=== PATIENT | female | born 1980 | race Two or more races ===

== ENCOUNTER → 2020-01-21 | Emergency (ER) | payer MEDICAID ==
[~2020-01-21] VITALS: Ht 165.1 cm; Wt 63.5 kg
[2020-01-21 19:56] LABS: Basophils # (auto) 0.1 10 ^3/uL (0-0.2); Eosinophils # (auto) 0.1 10 ^3/uL (0-0.8); Mean Corpuscular Volume 68.2 fL (80.0-100.0); Monocytes # (auto) 0.4 10 ^3/uL (0-1.3)
[2020-01-21 19:57] LABS: Basophils % (auto) 1.9 % (0.0-2.0); Eosinophils % (auto) 1.4 % (0.0-7.0); Hematocrit 32.5 % (36.0-46.0); Hemoglobin 10.2 g/dL (12.2-16.2); Lymphocytes # (auto) 1.8 10 ^3/uL (0.4-5.4); Lymphocytes % (auto) 27.8 % (10.0-50.0); Mean Corpuscular Hemoglobin 21.5 pg (28.0-32.0); Mean Corpuscular Hgb Conc. 31.5 g/dL (32.0-36.0); Neutrophils % (auto) 62.9 % (37.0-80.0); Platelet Count (auto) 307 10^3/uL (140-450); Red Blood Cells 4.77 10^6/uL (4.0-5.20); Red Cell Distribution Width 19.8 % (11.8-14.3); White Blood Cell 6.4 10^3/uL (4.4-10.8)
[2020-01-21 20:05] LABS: Albumin 3.5 g/dL (3.4-5.0); BUN/Creatinine Ratio 19.1; Calcium 8.4 mg/dL (8.5-10.1); Potassium 4.4 mmol/L (3.5-5.1)
[2020-01-21 20:08] LABS: Bilirubin, Total 0.2 mg/dL (0.2-1.0); Total Protein 7.2 g/dL (6.4-8.2)
[2020-01-21 21:23] VITALS: BP 110/70
== END | disposition home or self-care (01) ==
LOC: ER 18:11
DX: D64.9 Anemia, unspecified (principal); F17.210 Nicotine dependence, cigarettes, uncomplicated; R51 Headache; R42 Dizziness and giddiness; Z90.710 Acquired absence of both cervix and uterus
CPT/HCPCS: 36415; 80053; 85025; 93005

== ENCOUNTER 2020-05-24 09:11 | Emergency (ER) | payer MEDICAID ==
[~2020-05-24] VITALS: Ht 165.1 cm; Wt 63.5 kg
[2020-05-24 09:32] VITALS: BP 117/64
== END 2020-05-24 11:11 | disposition left against medical advice (07) ==
LOC: ER 09:11
DX: Z48.00 Encounter for change or removal of nonsurgical wound dressing (principal); Z53.21 Procedure and treatment not carried out due to patient leaving prior to being seen by health care provider

== ENCOUNTER 2023-02-02 10:30 | Emergency (ER) | payer MEDICAID ==
[~2023-02-02] VITALS: Ht 165.1 cm; Wt 64.1 kg
[2023-02-02] MEDS ORDERED: HYDROcodone-ACET 5/325MG TAB PO ONE (12:30)
[2023-02-02] MEDS ORDERED: KETOROLAC TROMETH 60MG/2ML VIAL IM ONE (12:30)
[2023-02-02] MEDS ORDERED: PRED20TA2 PO (13:17)
[2023-02-02] MEDS ORDERED: IBUP-1456 PO (13:17)
[2023-02-02 13:41] VITALS: BP 128/67
== END 2023-02-02 13:42 | disposition home or self-care (01) ==
LOC: ER 10:30
DX: M51.37 Other intervertebral disc degeneration, lumbosacral region (principal); M54.16 Radiculopathy, lumbar region; F17.210 Nicotine dependence, cigarettes, uncomplicated; Z90.710 Acquired absence of both cervix and uterus; Z86.2 Personal history of diseases of the blood and blood-forming organs and certain disorders involving the immune mechanism
CPT/HCPCS: 72100; 96372; 99283; J1885

== ENCOUNTER 2023-03-04 14:08 | Emergency (ER) | payer MEDICAID ==
[~2023-03-04] VITALS: Ht 165.1 cm; Wt 64.8 kg
[~2023-03-04 14:08] MED LIST: IBUP-1456 PO; PRED20TA2 PO
[2023-03-04 18:35] VITALS: BP 127/69; PULSE 100; RESP 20; TEMP 98.2; O2SAT 100
== END 2023-03-04 18:36 | disposition home or self-care (01) ==
LOC: ER 14:08
DX: S09.90XA Unspecified injury of head, initial encounter (principal); Z88.6 Allergy status to analgesic agent; Z90.710 Acquired absence of both cervix and uterus; Z98.890 Other specified postprocedural states; Y04.2XXA Assault by strike against or bumped into by another person, initial encounter; Y93.89 Activity, other specified; Y92.89 Other specified places as the place of occurrence of the external cause; Y99.8 Other external cause status
CPT/HCPCS: 70450; 70486

== ENCOUNTER 2023-05-11 11:10 | Emergency (ER) | payer MEDICAID ==
[~2023-05-11] VITALS: Ht 165.1 cm; Wt 66.4 kg
[2023-05-11] MEDS ORDERED: methylPREDNISolone SOD SUCC 125 MG/2 ML VL IM ONE (13:15)
[2023-05-11 14:18] VITALS: BP 118/71; PULSE 82; RESP 18; TEMP 97.9; O2SAT 100
== END 2023-05-11 14:31 | disposition home or self-care (01) ==
LOC: ER 11:10
DX: M51.37 Other intervertebral disc degeneration, lumbosacral region (principal); Z98.51 Tubal ligation status; Z90.710 Acquired absence of both cervix and uterus; Z88.6 Allergy status to analgesic agent
CPT/HCPCS: 72131; 93971; 96372; 99285; J2930